=== PATIENT | male | born 1975 | race Caucasian/White ===

== ENCOUNTER 2018-12-29 09:00 | Outpatient (RCR) | payer OTHER ==
[~2018-12-29 09:00] MED LIST: BENADRYL25 M2; DESYREL DIVIDO300 MG PO; LEVAQUIN 750MG750 M1 PO; MELATONIN5 M1; NO HOME MEDICATIONS; NORCO 325 MG-51 TAB PO; NORCO 325 MG-7.1 TAB PO; PERCOCET 325 MG1 TA2 PO; PHENERGAN 25 TA25 MG PO; ULTRAM 50MG TAB50 MG PO; WELLBUTRIN XL150 MG; XANAX 1MG1 MG PO
== END 2019-01-01 | disposition home or self-care (01) ==
LOC: WSPT
DX: S43.431D Superior glenoid labrum lesion of right shoulder, subsequent encounter (principal); M75.121 Complete rotator cuff tear or rupture of right shoulder, not specified as traumatic; G89.29 Other chronic pain

== ENCOUNTER 2019-02-07 16:00 | Outpatient (RCR) | payer OTHER | END 2019-03-12 10:40 | disposition home or self-care (01) | LOC: WSPT 16:00 | DX: S43.431D Superior glenoid labrum lesion of right shoulder, subsequent encounter (principal); M75.101 Unspecified rotator cuff tear or rupture of right shoulder, not specified as traumatic; M25.511 Pain in right shoulder; G89.29 Other chronic pain ==

== ENCOUNTER 2020-02-11 08:30 | Outpatient (RCR) | payer OTHER | END 2020-02-26 | disposition home or self-care (01) | LOC: WSPT | DX: M75.101 Unspecified rotator cuff tear or rupture of right shoulder, not specified as traumatic (principal); G56.81 Other specified mononeuropathies of right upper limb ==

== ENCOUNTER 2020-07-04 08:30 | Outpatient (RCR) | payer OTHER | END 2020-07-28 | disposition home or self-care (01) | LOC: WSPT | DX: M75.41 Impingement syndrome of right shoulder (principal); G56.81 Other specified mononeuropathies of right upper limb ==

== ENCOUNTER 2023-02-03 20:33 | Observation (INO) | payer SELFPAY ==
[~2023-02-03] VITALS: Ht 172.7 cm; Wt 83.0 kg
[2023-02-03 20:54] LABS: BASO % 0.7 % (0.0-2.0); EOS # 0.1 K/mm3 (0.0-0.7); EOS % 2.1 % (0.0-4.0); GRAN # 3.3 K/mm3 (1.4-6.5); HEMATOCRIT 42.8 % (42.0-52.0); HEMOGLOBIN 15.3 g/dl (13.5-18.0); LYMPH # 1.9 K/mm3 (1.2-3.4); MEAN CELL VOLUME 84 fl (80.0-100.0); MEAN CORPUSCULAR HEMOGLOBIN 30 pg (27-31); MEAN CORPUSCULAR HGB CONC 36 g/dl (33.0-37.0); MEAN PLATELET VOLUME 10.7 fl (7.4-10.4); MONO # 0.5 K/mm3 (0.1-0.6); PLATELET COUNT 180 K/mm3 (130-400); RED BLOOD COUNT 5.07 M/mm3 (4.20-5.60); REDCELL DISTRIBUTION WIDTH-CV 12.4 % (11.5-14.5)
[2023-02-03 21:05] LABS: PROTHROMBIN TIME 10.9 SECONDS (9.7-12.8)
[2023-02-03 21:07] LABS: PARTIAL THROMBOPLASTIN TIME 31.1 SECONDS (26.0-37.0)
[2023-02-03 21:08] LABS: ALBUMIN 4.1 gm/dL (3.5-5.0); BILIRUBIN,TOTAL 0.6 mg/dL (0.2-1.2); CREATININE, serum 1.23 mg/dL (0.72-1.25); POTASSIUM 3.9 mmol/L (3.5-4.5); TOTAL PROTEIN 7.4 gm/dL (6.2-8.1)
[2023-02-03 21:16] LABS: TROPONIN-I 0.134 ng/mL (0.00-0.033)
[2023-02-03] MEDS ORDERED: AMBIEN 10MG10 MG PO (23:46)
[2023-02-03] MEDS ORDERED: MELATONIN5 M1 SL (23:47)
[2023-02-03] MEDS ORDERED: BENADRYL50 MG PO (23:48)
[2023-02-04] VITALS (739 sets, daily range): BP systolic 89–124; BP diastolic 63–85; PULSE 66–704; TEMP 98.3–98.7; O2SAT 90–99
--- NOTE | 2023-02-04 01:22 | NUR ---
0054- Patient arrived to the ICU from the ED. Transported via wheelchair. Patient is ambulatory and was able to transfer from chair to bed independently. Patient is alert and oriented x4. Vital signs are stable, patient is on room air. Patient assessment completed, patient has made comments stating "you are probably going to be the last person to see me alive." This RN completed the suicide risk assessment on this patient. Patient responded "yes" to the questions about thoughts of suicide and plan for suicide, but stated "no" for thoughts of following through. Patient then began saying "nevermind, forget I said any of this, all my answers are no". Throughout the admission patient verbalizes concern for the cost of medical care. Patient initially refused a chest x-ray in the ED, when arrived to the ICU patient agreed to the x-ray and said "I don't really have a choice" RN reminded that they have a choice and right to refuse. Patient continued to agree to chest x-ray. 0158- FOZIA Castro contacted as patient requested a nicotine patch and to inform her on current mental health status of the patient. Patient attempted to bribe this RN with $50 to allow him to use his vape. Patient educated on hospital policy and warned that if he is found using his vape his belongings would be removed from the room. Patient verbalizes understanding.
--- NOTE | 2023-02-04 02:24 | NUR ---
Patient placed on suicide precautions. Plastic bags removed from room, patient belongings removed from room and sent down with Humphrey howell. Patient educated on why belongings were being removed. Patient was understanding and was cooperative.
[2023-02-04 03:00] LABS: BASO # 0.1 K/mm3 (0.0-0.2); BASO % 0.9 % (0.0-2.0); EOS # 0.2 K/mm3 (0.0-0.7); EOS % 3.1 % (0.0-4.0); GRAN % 51.1 % (42.2-75.2); HEMATOCRIT 38.9 % (42.0-52.0); LYMPH # 2.1 K/mm3 (1.2-3.4); LYMPH % 35.1 % (20.0-51.0); MEAN CELL VOLUME 84 fl (80.0-100.0); MEAN CORPUSCULAR HEMOGLOBIN 30 pg (27-31); MEAN CORPUSCULAR HGB CONC 36 g/dl (33.0-37.0); MEAN PLATELET VOLUME 10.9 fl (7.4-10.4); MONO # 0.6 K/mm3 (0.1-0.6); MONO % 9.5 % (1.7-9.3); PLATELET COUNT 166 K/mm3 (130-400); RED BLOOD COUNT 4.65 M/mm3 (4.20-5.60); REDCELL DISTRIBUTION WIDTH-CV 12.4 % (11.5-14.5)
[2023-02-04 03:10] LABS: CALCIUM 8.8 mg/dL (8.4-10.2); CHOLESTEROL RISK RATIO 6.3; CREATININE, serum 1.01 mg/dL (0.72-1.25); MAGNESIUM 2.1 mg/dL (1.6-2.6); POTASSIUM 3.9 mmol/L (3.5-4.5)
[2023-02-04 03:20] LABS: TROPONIN-I 6 HR POST INITIAL 0.124 ng/mL (0.00-0.033)
--- NOTE | 2023-02-04 07:12 | NUR ---
Patient stated he woke up "feeling off". When asked to elaborate patient states that it feels like the start of a panic attack. Tele ICU contacted due to shift change. ordered 0.5mg of IV ativan one time now.
[2023-02-04 08:01] LABS: TRICYCLIC ANTIDEPRESS URINE NEGATIVE
[2023-02-04 11:26] LABS: PARTIAL THROMBOPLASTIN TIME 36.2 SECONDS (26.0-37.0)
[2023-02-04] MEDS ORDERED: PLAVIX 75MG TAB75 MG PO (13:53)
[2023-02-04] MEDS ORDERED: TOPROL XL 25MG25 MG PO (13:53)
[2023-02-04] MEDS ORDERED: LIPITOR 80MG80 MG PO (13:53)
[2023-02-04] MEDS ORDERED: ASPIRIN 81M81 MG/TA2 PO (13:53)
[2023-02-04] MEDS ORDERED: CARAFATE 1GM1 G PO (13:54)
[2023-02-04] MEDS ORDERED: PROTONIX 40MG T40 MG PO (13:54)
[2023-02-04] MEDS ORDERED: NITROSTAT0.3 MG SL (18:15)
[2023-02-04] MEDS ORDERED: NITROSTAT0.4 MG/TAB SL (19:26)
== END 2023-02-04 18:15 | disposition home or self-care (01) ==
LOC: COL.ER 20:33 → ICU 22:53
PROVIDERS: Family Medicine; Internal Medicine; Nurse Practitioner Family; ADMIT Student in an Organized Health Care Education/Training Program
DX: I21.4 Non-ST elevation (NSTEMI) myocardial infarction (principal); R45.851 Suicidal ideations; F41.0 Panic disorder [episodic paroxysmal anxiety]; F41.9 Anxiety disorder, unspecified; F17.290 Nicotine dependence, other tobacco product, uncomplicated; Z28.310 Unvaccinated for COVID-19; Z79.899 Other long term (current) drug therapy; Z28.9 Immunization not carried out for unspecified reason
CPT/HCPCS: G0378; J1650; J2060; J2270; J7030

== ENCOUNTER 2023-02-07 15:03 | Inpatient (IN) | payer SELFPAY ==
[2023-02-07] VITALS (375 sets, daily range): BP systolic 100–107; BP diastolic 70–74; PULSE 74–75; TEMP 97.7–97.8; O2SAT 90–99
[~2023-02-07] VITALS: Ht 172.7 cm; Wt 81.8 kg
[~2023-02-07 15:03] MED LIST changes: +AMBIEN 10MG10 MG PO; +ASPIRIN 81M81 MG/TA2 PO; +BENADRYL50 MG PO; +CARAFATE 1GM1 G PO; +LIPITOR 80MG80 MG PO; +MELATONIN5 M1 SL; +NITROSTAT0.3 MG SL; +NITROSTAT0.4 MG/TAB SL; +PLAVIX 75MG TAB75 MG PO; +PROTONIX 40MG T40 MG PO; +TOPROL XL 25MG25 MG PO
[2023-02-07 15:43] LABS: BASO % 0.7 % (0.0-2.0); EOS # 0.1 K/mm3 (0.0-0.7); GRAN # 3.7 K/mm3 (1.4-6.5); GRAN % 66.3 % (42.2-75.2); HEMOGLOBIN 14.2 g/dl (13.5-18.0); LYMPH # 1.2 K/mm3 (1.2-3.4); LYMPH % 21.2 % (20.0-51.0); MEAN CELL VOLUME 83 fl (80.0-100.0); MEAN CORPUSCULAR HEMOGLOBIN 30 pg (27-31); MEAN CORPUSCULAR HGB CONC 36 g/dl (33.0-37.0); MEAN PLATELET VOLUME 10.9 fl (7.4-10.4); MONO # 0.6 K/mm3 (0.1-0.6); MONO % 9.8 % (1.7-9.3); PLATELET COUNT 161 K/mm3 (130-400); RED BLOOD COUNT 4.71 M/mm3 (4.20-5.60); REDCELL DISTRIBUTION WIDTH-CV 12.4 % (11.5-14.5)
[2023-02-07 15:59] LABS: ALBUMIN 3.9 gm/dL (3.5-5.0); BILIRUBIN,TOTAL 0.5 mg/dL (0.2-1.2); CALCIUM 9.1 mg/dL (8.4-10.2); CREATININE, serum 0.97 mg/dL (0.72-1.25); POTASSIUM 3.8 mmol/L (3.5-4.5); PROTHROMBIN TIME 11.6 SECONDS (9.7-12.8); TOTAL PROTEIN 6.9 gm/dL (6.2-8.1)
[2023-02-07 16:02] LABS: PARTIAL THROMBOPLASTIN TIME 29.5 SECONDS (26.0-37.0)
[2023-02-07 16:08] LABS: TROPONIN-I 0.154 ng/mL (0.00-0.033)
--- NOTE | 2023-02-07 17:21 | NUR ---
1700 REPORT TO MEDICAL NURSE. 1710 PT TRANSFERED TO MEDICAL ROOM 309. UPDATED ON MOVE.
[2023-02-08] VITALS (578 sets, daily range): BP systolic 95–115; BP diastolic 62–78; PULSE 68–112; TEMP 97.5–97.9; O2SAT 88–98
[2023-02-08 05:22] LABS: BASO % 0.6 % (0.0-2.0); EOS # 0.2 K/mm3 (0.0-0.7); EOS % 3.4 % (0.0-4.0); GRAN # 2.2 K/mm3 (1.4-6.5); GRAN % 43.6 % (42.2-75.2); HEMOGLOBIN 13.7 g/dl (13.5-18.0); LYMPH # 2.1 K/mm3 (1.2-3.4); LYMPH % 42.2 % (20.0-51.0); MEAN CELL VOLUME 85 fl (80.0-100.0); MEAN CORPUSCULAR HEMOGLOBIN 31 pg (27-31); MEAN CORPUSCULAR HGB CONC 36 g/dl (33.0-37.0); MEAN PLATELET VOLUME 10.8 fl (7.4-10.4); MONO # 0.5 K/mm3 (0.1-0.6); PLATELET COUNT 168 K/mm3 (130-400); RED BLOOD COUNT 4.48 M/mm3 (4.20-5.60); REDCELL DISTRIBUTION WIDTH-CV 12.8 % (11.5-14.5)
[2023-02-08 05:38] LABS: ALBUMIN 3.4 gm/dL (3.5-5.0); CALCIUM 8.7 mg/dL (8.4-10.2); MAGNESIUM 1.9 mg/dL (1.6-2.6); PHOSPHOROUS 4.1 mg/dL (2.3-4.7); POTASSIUM 3.5 mmol/L (3.5-4.5)
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
--- NOTE | 2023-02-08 09:59 | NUR ---
See merge for all medication, assessment, intervention, and vital sign times.
--- NOTE | 2023-02-08 10:12 | NUR ---
Initial visit; Patient thanked Folded Cloth Taper for coming in and seems to think he may not live through this illness. Folded Cloth Taper offered prayer and encouragement along with assurance of God's presence and comfort. Folded Cloth Taper will follow up.
--- NOTE | 2023-02-08 14:01 | NUR ---
RE: Cardiac Rehab. Pt has diagnosed NSTEMI - would qualify for Cardiac Rehab. Staff will attempt to see patient prior to d/c to review risk factors for CAD and possible scheduling/referral. If unable to see, will f/u within 1 buis day.
--- NOTE | 2023-02-08 14:19 | NUR ---
1410 REVIEWED DC INSTRUCTIONS WITH PT. PT VERBALIZED UNDERSTANDING. IV DC'D CATHETER INTACT. PT TAKEN OUT ACCOMPANIED BY ICU NURSE AND NEPHEW TO NEPHEWS CAR. WITH DISCHARGE INSTRUCTIONS IN HAND. PT LEFT BUILDING AT 1420
== END 2023-02-08 14:20 | disposition home or self-care (01) | DRG 282 ==
LOC: COL.ER 15:03 → ICU 16:41
PROVIDERS: Family Medicine; ADMIT Internal Medicine
PROC: B2111ZZ Fluoroscopy of Multiple Coronary Arteries using Low Osmolar Contrast (ICD-10-PCS; principal; 2023-02-08)
DX: I21.4 Non-ST elevation (NSTEMI) myocardial infarction (principal); F41.0 Panic disorder [episodic paroxysmal anxiety]; F17.290 Nicotine dependence, other tobacco product, uncomplicated; Z88.0 Allergy status to penicillin; Z79.82 Long term (current) use of aspirin; Z79.899 Other long term (current) drug therapy; Z79.02 Long term (current) use of antithrombotics/antiplatelets
CPT/HCPCS: C1760; C1894; J1644; J2250; J2270; J3010; J3480; Q9967